=== PATIENT | male | born 1995 | race Two or more races ===

== ENCOUNTER 2018-06-19 11:27 | Emergency (ER) | payer OTHER ==
[~2018-06-19] VITALS: Ht 175.3 cm; Wt 63.5 kg
[2018-06-19 12:07] VITALS: BP 140/84
[2018-06-19] MEDS: cefTRIAXone SOD 1,000 MG VL ONE (12:53)
[2018-06-19] MEDS: cefTRIAXone W LIDOCAINE 1 GM IM IM ONE (13:04)
[2018-06-19] MEDS: LIDOCAINE 1% HCL (LOCAL ANESTH.) INJ 20ML MDV IJ ONE (13:04)
[2018-06-19] MEDS: KETOROLAC TROMETH 60MG/2ML VIAL IM ONE (13:04)
== END 2018-06-19 13:40 | disposition home or self-care (01) ==
LOC: ER 11:28
DX: S62.623B Displaced fracture of middle phalanx of left middle finger, initial encounter for open fracture (principal); S62.625B Displaced fracture of middle phalanx of left ring finger, initial encounter for open fracture; W26.8XXA Contact with other sharp object(s), not elsewhere classified, initial encounter; Y93.89 Activity, other specified; Y99.8 Other external cause status; Y92.89 Other specified places as the place of occurrence of the external cause
CPT/HCPCS: 73130; 96372; 99284; J0696; J1885; J2001